=== PATIENT | female | born 1965 | race Caucasian/White ===

== ENCOUNTER 2016-05-14 02:39 | Emergency (ER) | payer OTHER ==
[~2016-05-14] VITALS: Ht 162.6 cm; Wt 54.5 kg
[~2016-05-14 02:39] MED LIST: LORA-303 PO; PROM25TA14 PO
[2016-05-14 03:00] VITALS: BP 124/100; PULSE 102; RESP 19; O2SAT 99
--- NOTE | 2016-05-14 03:00 | ED.REPORT ---
HPI-General Illness Date of Service May 14, 2016 ED Provider: Dr. Muller Pt is a 50 year old female presenting to the ED wanting to detox from EtOH. She reports vomiting green bile and shaking. Pt states that she has been drinking 1/ 2 a fifth to 1/5 daily for the past 2 weeks. Before that she was sober for 9 months. She denies hx of withdrawal seizures, liver disease, cirrhosis. Nursing Notes Stated Complaint: ALCOHOL WITHDRAWAL Chief Complaint: Substance Abuse Nursing Notes Reviewed: Yes Allergies: Coded Allergies: Sulfa (Sulfonamide Antibiotics) (Verified Allergy, Unknown, 05/14/16) amoxicillin (Verified Allergy, Unknown, 05/14/16) clavulanic acid (Verified Allergy, Unknown, 05/14/16) Scheduled Omeprazole (Omeprazole) 20 Mg Tablet.dr 20 MG PO BID Ondansetron ODT (Ondansetron ODT) 8 Mg Tab.rapdis 8 MG PO BID Scheduled PRN Lorazepam (Ativan) 1 Mg Tablet 1 MG PO ASDIRECTED PRN PRN For Anxiety 1 mg every 6 hours for 4 doses, then 1 mg every 8 hours for 3 doses, then 1 mg every 12 hours for 2 doses, then 1 mg on the final day. Promethazine (Promethazine) 25 Mg Tablet 25 MG PO Q6H PRN PRN For Nausea/ Vomiting General Time Seen by MD: 02:59 Chief Complaint Vomiting, Other (Alcohol Withdrawal) Hx Obtained From: Patient, Spouse Arrived By: Walk-in Sudden in Onset?: No Onset Occurred: Just prior to arrival Context of Onset: EtOH use Symptom Duration: Since onset Severity: Current: No pain currently Severity: Maximum: No pain Recent Healthcare: No recent doctor visit, No recent hospitalization Similar Sx Previous: Yes Past Medical History Past Medical History Alcoholism Past Surgical History None Smoking History Unknown if Ever Smoker Social History Alcohol Use: >5 per day Drug Use: Denies drug use Other Social History: Ambulatory Status Independent Review of Systems Full Review of Systems GI: Reports: Vomiting Neurologic: Reports: Shaking, Denies: Seizure Complete sys rev & neg: except as marked. Physical Exam Vital Signs Vital Signs Date Time Temp Pulse Resp B/P Pulse Ox O2 Delivery O2 Flow Rate FiO2 05/14/16 06:11 104 14 118/88 98 Room Air 05/14/16 03:00 35.8 102 19 124/100 99 Room Air Initial VS: Reviewed Head / Eyes: Atraumatic, Normocephalic, PERRL ENT: Mucous membranes moist, Conjunctiva normal, No scleral icterus Neck: Supple, Non-tender, Full range of motion Respiratory: Breath sounds normal, Clear to auscultation, No respiratory distress Skin: Warm, Dry, No cyanosis Neurologic: Alert, Oriented, Nonfocal Psychiatric: Mood/affect normal, Behavior normal, Normal thought content General/Constitutional: Awake, Alert Distress / Hydration: Positive: Dehydration mild Appearance / Presentation: Positive: Icteric Tremulous Cardiovascular: Regular rhythm, Heart sounds NL Heart Rate / Rhythm: Positive: Tachycardia Abdomen: Atraumatic, No guarding, No rebound Tenderness/Guarding/Rebound: Positive: Tender epigastric Interpretation & Diagnostics Lab Results Interpretation Result Diagram: 05/14/16 0300 05/14/16 0300 Test 05/14/16 03:00 05/14/16 03:30 White Blood Count 11.9th/mm3 (3.8-10.1) Red Blood Count 4.59mil/mm3 (3.90-5.20) Hemoglobin 13.7g/dL (12.0-15.6) Hematocrit 39.1% (35.0-46.0) Mean Corpuscular Volume 85.2fL (81-100) Mean Corpuscular Hemoglobin 29.8pg (27.0-35.0) Mean Corpuscular Hemoglobin Concent 35.0% (32.0-37.0) Red Cell Distribution Width 13.5% (12.3-15.4) Platelet Count 170bil/L (150-400) Neutrophils (%) (Auto) 85.8% (40-74) Lymphocytes (%) (Auto) 9.2% (14-46) Monocytes (%) (Auto) 4.5% (4-12) Eosinophils (%) (Auto) 0% (0-5) Basophils (%) (Auto) 0.2% (0-3) Prothrombin Time 10.5sec (8.1-12.5) Prothromb Time International Ratio 0.98ratio Sodium Level 140mEq/L (134-144) Potassium Level 4.0mEq/L (3.5-5.2) Chloride Level 94mEq/L (97-108) Carbon Dioxide Level 26mmol/L (18-29) Blood Urea Nitrogen 18mg/dL (6-24) Creatinine 0.41mg/dL (0.57-1.00) Estimat Glomerular Filtration Rate 234mL/min (>59) Glucose Level 155mg/dL (60-99) Calcium Level 8.4mg/dL (8.5-10.1) Magnesium Level 2.2mg/dL (1.6-2.6) Total Bilirubin 0.5mg/dL (0.0-1.2) Aspartate Amino Transf (AST/SGOT) 51U/L (0-50) Alanine Aminotransferase (ALT/SGPT) 29U/L (0-32) Alkaline Phosphatase 93U/L (25-150) Total Protein 7.4g/dL (6.4-8.4) Albumin 4.8g/dL (3.4-5.0) Lipase 39U/L (13-60) Hold Nugent Top Tube Received (Received) Urine Color Yellow (YELLOW) Urine Appearance Clear (CLEAR,HAZY) Urine pH 6.2 (5.0-8.0) Urine Specific [place] 1.020 (1.003-1.035) Urine Protein Tracemg/dL (NEG,TRACE) Urine Glucose (UA) Negativemg/dL (NEGATIVE) Urine Ketones Negativemg/dL (NEGATIVE) Urine Occult Blood Large (NEGATIVE) Urine Nitrite Negative (NEGATIVE) Urine Bilirubin Negative (NEGATIVE) Urine Urobilinogen Normalmg/dL (NORMAL) Urine Leukocyte Esterase Negative (NEGATIVE) Urine RBC 3-10/hpf (0-2) Urine WBC 0-5/hpf (0-5) Urine Epithelial Cells Occasional/hpf (NONE-MOD) Urine Crystals None seen (NONE SEEN) Urine Bacteria Few/hpf (NONE-FEW) Urine Hyaline Casts Occasional/lpf (NONE) Urine Granular Casts Occasional (NONE SEEN) Urine Waxy Casts None seen (NONE SEEN) Urine Red Blood Cell Casts None seen (NONE SEEN) Urine White Blood Cell Casts None seen (NONE SEEN) Urine Mucus Present (None Seen) Urine Trichomonas None seen (NONE SEEN) Urine Yeast None (NONE SEEN) Urinalysis Comment None Urine Culture Reflexed Not indicated ECG Interpretation Time: 05:51 Interpreted by: ED physician Normal ECG Interpretation: Normal sinus rhythm Rhythm / Conduction: Tachycardia (Rate 105) Re-Eval/Medical Decision Med Decision/Clinical Course 50-year-old with intermittent severe alcoholism presents after a fairly brief relapse of 2-3 weeks. However, she drinks upwards to a fifth of distilled liquor a day. She is tremulous, mildly tachycardic, and clearly in withdrawal. Much improved after 4 mg total of Ativan given orally. She lives in a stable environment at home with her who is quite supportive. He believes she can be withdrawn safely at home as has happened in the past. Provided with Ativan and Zofran for support. Prompt return of seizures or other issues develop. Discharged in stable and improved condition. Time of Eval: 04:31 Patient Status: Condition improved Re-Evaluation/Progress Note: Pt resting comfortably. Time of Eval: 05:57 Patient Status: Condition improved Re-Evaluation/Progress Note: Discussed plan for discharge. Pt understands and agrees with plan. Counseled Regarding: Diagnosis, Lab results, Need for follow-up, When/why to return to ED Discharge & Departure Primary Impression: Alcohol withdrawal Complication of substance-induced condition: uncomplicated Qualified Code: F10.230 - Alcohol dependence with withdrawal, uncomplicated Additional Impressions: Alcohol abuse Dehydration Disposition: Home Discharge Condition All VS Reviewed: Yes Condition: Improved Patient Instructions: Alcohol Withdrawal (ED) Additional Instructions: Began Ativan as directed on the label. Do not drink. Follow-up with your doctor in the office. Return if any immediate issues. Zofran four times daily if needed for nausea. Ondansetron twice daily. Referrals: Christy Benitez MD (PCP) Josue Attestation Portions of this note were transcribed by Veronica Fountain. I, Dr. Muller personally performed the history, physical exam and medical decision-making; I reviewed and confirmed the accuracy of the information in the transcribed note. Signed by: Josue Chang, 05/14/2016 at 0556. copies to: Christy Benitez MD, Christopher W MD May 14, 2016 03:00 VERONICA FOUNTAIN May 14, 2016 03:10
[2016-05-14] MEDS ORDERED: Multivitamin w/Vit K Inj 10 ML, Thiamine Inj 100 MG, Folic Acid Inj 1 MG, Magnesium Sul... IV ONE ×5 (03:07)
[2016-05-14] MEDS ORDERED: 0.9% Sodium Chloride 1,000 ML IV ONE (03:07)
[2016-05-14] MEDS ORDERED: Ondansetron 2 mg/mL 2 mL Inj IVPUSH ONE (03:10)
[2016-05-14] MEDS ORDERED: Pantoprazole 4 mg/mL 10 mL Inj IVPUSH ONE (03:10)
[2016-05-14 03:15] LABS: BASOPHILS % (AUTO) 0.2 % (0-3); EOSINOPHILS % (AUTO) 0 % (0-5); MONOCYTES % (AUTO) 4.5 % (4-12); Mean Corpuscular Hemoglobin 29.8 pg (27.0-35.0); Mean Corpuscular Volume 85.2 fL (81-100); NEUTROPHILS % (AUTO) 85.8 % (40-74); Platelet Count 170 bil/L (150-400)
[2016-05-14 03:27] LABS: INR 0.98 ratio
[2016-05-14 03:34] LABS: Magnesium 2.2 mg/dL (1.6-2.6)
[2016-05-14 03:43] LABS: APPEARANCE,URINE CLEAR (CLEAR,HAZY); COLOR,URINE YELLOW (YELLOW); PH,URINE 6.2 (5.0-8.0)
[2016-05-14 03:44] LABS: OCCULT BLOOD,URINE LARGE (NEGATIVE); UROBILINOGEN,URINE NORMAL (NORMAL)
[2016-05-14] MEDS ORDERED: LORazepam 2 mg Tablet PO ONE (04:40)
[2016-05-14] MEDS ORDERED: _Ondansetron ODT 4 mg Tablet PO PRN (05:25)
[2016-05-14] MEDS ORDERED: OMEP20TA86 PO (05:25)
[2016-05-14] MEDS ORDERED: _LORazepam 2 MG Tablet PO SCH (05:25)
[2016-05-14] MEDS ORDERED: ONDA8TAB10 PO (05:25)
[2016-05-14 06:11] VITALS: BP 118/88; PULSE 104; RESP 14; O2SAT 98
== END 2016-05-14 05:26 | disposition home or self-care (01) ==
LOC: SED 02:39
DX: F10.230 Alcohol dependence with withdrawal, uncomplicated (principal); E86.0 Dehydration; Z88.2 Allergy status to sulfonamides; Z88.0 Allergy status to penicillin
CPT/HCPCS: 36415; 80053; 81000; 83690; 83735; 85025; 85610; 93005; 96361; 96374; 96375; 96376; 99285; J2060; J2405; J3475; J7030

== ENCOUNTER 2016-10-02 13:28 | Observation (INO) | payer OTHER ==
[~2016-10-02] VITALS: Ht 162.6 cm; Wt 58.4 kg
[~2016-10-02 13:28] MED LIST changes: +OMEP20TA86 PO; +ONDA8TAB10 PO
[2016-10-02 13:55] VITALS: BP 147/87; PULSE 100; RESP 15; O2SAT 98
[2016-10-02] MEDS ORDERED: LidocaineVisc 2%:Antacid 1:1 10 mL Syringe PO STA (14:52)
[2016-10-02] MEDS ORDERED: Pantoprazole 4 mg/mL 10 mL Inj IVPUSH ONE (14:55)
[2016-10-02] MEDS ORDERED: Ondansetron 2 mg/mL 2 mL Inj IVPUSH ONE (14:55)
[2016-10-02] MEDS ORDERED: Thiamine Inj 100 MG, Folic Acid Inj 1 MG, Magnesium Sulfate 50% Inj 2 GM, Multivitamins... IV ONE ×5 (14:55)
--- NOTE | 2016-10-02 15:02 | ED.REPORT ---
HPI-General Illness Date of Service Oct 02, 2016 ED Provider: Cristian Morton MD A 50 year old female with a history of severe alcoholism, GERD and fibromyalgia presents to the ED complaining of persistent nausea secondary to alcohol withdrawal that began this afternoon. Patient began to express concern that she would drink more to relieve the nausea and presents to the ED seeking relief from her withdrawal symptoms and placement in a detox center. Her last drink was at 0500 this morning. Associated symptoms include decreased fluid intake. dry-heaving and tremors. Her symptoms have been constant since arrival to the ED. Patient was seen in the ED on 05/14 for similar withdrawal symptoms and was discharged in good condition with a prescription for Ativan, Zofran and Ondansetron. The patient has been drinking since 8th grade with multiple periods of sobriety. She denies history of withdrawal seizures. Patient denies any chest pain or SOB. Nursing Notes Stated Complaint: NAUSEA/WITHDRAWL Chief Complaint: Substance Abuse Nursing Notes Reviewed: Yes Allergies: Coded Allergies: Sulfa (Sulfonamide Antibiotics) (Verified Allergy, Unknown, 10/02/16) amoxicillin (Verified Allergy, Unknown, 10/02/16) clavulanic acid (Verified Allergy, Unknown, 10/02/16) Scheduled Pantoprazole DR (Protonix) 20 Mg Tablet 20 MG PO BID Pregabalin (Lyrica) 75 Mg Capsule 75 MG PO BID Scheduled PRN Ibuprofen (Ibuprofen) 200 Mg Capsule 200-400 MG PO TID PRN PRN For Pain General Time Seen by MD: 14:49 Chief Complaint Other (Nausea) Hx Obtained From: Patient Arrived By: Walk-in Sudden in Onset?: No Onset Occurred: 9 - 12 hours ago Symptom Duration: Since onset Associated with: Reports: Nausea Pertinent Negative: Pt denies other symptoms Recent Healthcare: No recent hospitalization, Recent doctor visit Past Medical History Past Medical History Alcoholism Fibromyalgia GERD Past Surgical History None reported Smoking History Unknown if Ever Smoker Social History Alcohol Use: >5 per day Drug Use: Denies drug use Other Social History: Good social support, , Local resident Ambulatory Status Independent Review of Systems Decreased fluid intake Full Review of Systems GI: Reports: Nausea Complete sys rev & neg: except as marked. Physical Exam Nursing note and vitals reviewed. Constitutional: Well-developed, well-nourished. Not diaphoretic. Head: Normocephalic and atraumatic. Mouth/Throat: Oropharynx is clear and moist. Eyes: EOM are normal. Pupils are equal, round, and reactive to light. Neck: Supple, no tracheal deviation. Cardiovascular: Tachycardic, regular rhythm. Equal and intact distal pulses throughout. Pulmonary/Chest: Effort normal and breath sounds normal. No respiratory distress. Abdominal: Soft. No distension. There is no tenderness, rebound, or guarding. Bowel sounds present. Musculoskeletal: Range of motion grossly intact, moving all extremities. No edema or tenderness appreciated. Neurological: Tremulous. No asterixis. AOx3. Strength and sensation intact and equal to bilateral upper and lower extremities. Skin: Warm and dry, no rashes or pallor appreciated. Psychiatric: Appropriate mood and affect. Behavior appears normal. Vital Signs Vital Signs Date Time Temp Pulse Resp B/P Pulse Ox O2 Delivery O2 Flow Rate FiO2 10/02/16 13:55 36.8 100 15 147/87 98 Room Air Interpretation & Diagnostics Lab Results Interpretation Result Diagram: 10/02/16 1500 10/02/16 1500 Test 10/02/16 15:00 White Blood Count 11.5th/mm3 (3.8-10.1) Red Blood Count 5.24mil/mm3 (3.90-5.20) Hemoglobin 16.1g/dL (12.0-15.6) Hematocrit 46.4% (35.0-46.0) Mean Corpuscular Volume 88.5fL (81-100) Mean Corpuscular Hemoglobin 30.7pg (27.0-35.0) Mean Corpuscular Hemoglobin Concent 34.7% (32.0-37.0) Red Cell Distribution Width 14.4% (12.3-15.4) Platelet Count 316bil/L (150-400) Neutrophils (%) (Auto) 59.3% (40-74) Lymphocytes (%) (Auto) 28.3% (14-46) Monocytes (%) (Auto) 11.4% (4-12) Eosinophils (%) (Auto) 0.4% (0-5) Basophils (%) (Auto) 0.4% (0-3) Sodium Level 138mEq/L (134-144) Potassium Level 4.2mEq/L (3.5-5.2) Chloride Level 96mEq/L (97-108) Carbon Dioxide Level 19mmol/L (18-29) Blood Urea Nitrogen 16mg/dL (6-24) Creatinine 0.66mg/dL (0.57-1.00) Estimat Glomerular Filtration Rate 135mL/min (>59) Glucose Level 91mg/dL (60-99) Calcium Level 9.1mg/dL (8.5-10.1) Total Bilirubin 0.6mg/dL (0.0-1.2) Aspartate Amino Transf (AST/SGOT) 33U/L (0-50) Alanine Aminotransferase (ALT/SGPT) 23U/L (0-32) Alkaline Phosphatase 85U/L (25-150) Total Protein 8.1g/dL (6.4-8.4) Albumin 5.0g/dL (3.4-5.0) Lipase 24U/L (13-60) Hold Nugent Top Tube Received (Received) Alcohols 75mg/dL (0-10) ECG Interpretation ECG Interpretation: Sinus Rhythm Rate 93 Probable left atrial enlargement No prior for comparison Time: 16:23 Interpreted by: ED physician Re-Eval/Medical Decision Med Decision/Clinical Course In summary, 51-year-old female presenting to the ED for evaluation of tremor, tachycardia and concern for alcohol withdrawal. Last drink early this morning. CIWA score upon arrival of 20. Laboratory studies reviewed, notable for a white blood cell count of 11.5, anion gap of 23, blood alcohol 75. Lipase within normal limits. EKG demonstrates sinus rhythm, no acute ischemic changes. Patient given folic acid, thiamine, multivitamin, and IV fluids here in the ED, as well as benzodiazepines. No history of seizures with her alcohol withdrawal. Plan admission for further evaluation and management of acute alcohol withdrawal. Time of Eval: 16:09 Re-Evaluation/Progress Note: Patient's symptoms are still present following .5 L of saline. She is offerred admission to the hospital for withdrawal symptoms. Time of Eval: 16:38 Patient Status: Condition improved Re-Evaluation/Progress Note: Symptoms have improved. She would like to be admitted to the hosptial for further evaluation and symptom control. All questions are addressed. Consultation : Consulted With: Hospitalist Call Returned at: 16:39 Ticket Speculator: Will see patient, Agrees with eval, Agrees with plan, Accepts admit Counseled Regarding: Diagnosis, Lab results, Need for admission Discharge & Departure Primary Impression: Alcohol withdrawal Complication of substance-induced condition: uncomplicated Qualified Code: F10.230 - Alcohol dependence with withdrawal, uncomplicated Disposition: ADMITTED TO HOSPITAL Discharge Condition All VS Reviewed: Yes Condition: Stable Referrals: Christy Benitez MD (PCP) Josue Attestation Portions of this note were transcribed by Reyna Cano. Dr. Selene Diaz personally performed the history, physical exam and medical decision-making; I reviewed and confirmed the accuracy of the information in the transcribed note. Signed by: Josue Enamorado, 10/02/16 1640. copies to: Christy Benitez MD, William B MD Oct 02, 2016 15:02 JEROMEREYNA Oct 02, 2016 15:36 Portions of this note were transcribed by Reyna Cano. Dr. Selene Diaz personally performed the history, physical exam and medical decision-making; I reviewed and confirmed the accuracy of the information in the transcribed note. Signed by: Josue Enamorado, 10/02/16 1640. copies to: Christy Benitez MD, William B MD Oct 02, 2016 15:02 REYNA CANO Oct 02, 2016 15:36
[2016-10-02 15:18] LABS: BASOPHILS % (AUTO) 0.4 % (0-3); EOSINOPHILS % (AUTO) 0.4 % (0-5); MONOCYTES % (AUTO) 11.4 % (4-12); Mean Corpuscular Hemoglobin 30.7 pg (27.0-35.0); Mean Corpuscular Volume 88.5 fL (81-100); NEUTROPHILS % (AUTO) 59.3 % (40-74); Platelet Count 316 bil/L (150-400)
[2016-10-02] MEDS ORDERED: Ondansetron 2 mg/mL 2 mL Inj IVPUSH PRN ×2 (15:50→16:20)
[2016-10-02] MEDS ORDERED: 0.9% Sodium Chloride 1,000 ML IV ONE (16:00)
[2016-10-02] MEDS ORDERED: Polyethylene Glycol (PEG) 17 Gm Powder PO PRN (16:20)
[2016-10-02] MEDS ORDERED: Alum-Mag Hydrox-Simeth 30 mL Suspension PO PRN (16:20)
[2016-10-02] MEDS ORDERED: PANT20T PO (16:33)
[2016-10-02] MEDS ORDERED: PREG75CA PO (16:33)
[2016-10-02] MEDS ORDERED: IBUP200C PO (16:33)
[2016-10-02 17:45] VITALS: BP 141/86; PULSE 88; RESP 22; O2SAT 96
[2016-10-02 17:56] VITALS: PULSE 89
[2016-10-02] MEDS: chlordiazePOXIDE 25 mg Capsule PO PRN (18:01)
[2016-10-02] MEDS: Heparin 5,000 Unit/mL Inj SUBQ SCH (18:02)
[2016-10-02] MEDS: Pantoprazole 40 mg ER24 Tablet PO SCH (18:20)
--- NOTE | 2016-10-02 18:32 | PCM.HPMED ---
Subjective Date of Service Oct 02, 2016 Primary Provider: Admitting Physician: Flex Zavala MD Primary Care Physician: Christy Benitez MD Attending Physician: Flex Zavala MD Admit Status: From the Emergency Department Chief Complaint: Nausea, Withdrawal History of Present Illness: Radha Restrepo is a 51 year old female with a history of GERD and severe alcohol dependence that presented to the Emergency Department on 10/02 for ongoing nausea secondary to alcohol withdrawal that began earlier this morning. She is unable to keep anything down by mouth and has been retching with tremors all afternoon. Her last drink was at 0500 this morning. She is hoping to detox and get more resources so that she doesn't relapse again as she is part of AA and feels like that is not enough. She denies any chest pain, shortness of breath, hallucinations, prior withdrawal seizures or inpatient detox attempts. Review of Systems: A comprehensive review of systems was obtained and reported negative except as in the History of Present Illness. Allergies Coded Allergies: Sulfa (Sulfonamide Antibiotics) (Verified Allergy, Unknown, 10/02/16) amoxicillin (Verified Allergy, Unknown, 10/02/16) clavulanic acid (Verified Allergy, Unknown, 10/02/16) Home Medications Scheduled Pantoprazole DR (Protonix) 20 Mg Tablet 20 MG PO BID Pregabalin (Lyrica) 75 Mg Capsule 75 MG PO BID PMH Alcoholism Fibromyalgia GERD Surgical History C-spine vertebral replacement, 2 discs Family History Father: of Pancreatic Cancer Mother: of heart failure Social History Hx Alcohol Use: Yes (DAILY) Hx Substance Use: No Hx Tobacco Use: Yes (1/2 ppd for 40 years) Smoking Status: Current Every Day Smoker, Unknown if Ever Smoker Living Arrangement: with Family Exam Vital Signs Vital Sign - Last Date Time Temp Pulse Resp B/P Pulse Ox O2 Delivery O2 Flow Rate FiO2 10/02/16 17:56 89 10/02/16 17:45 36.6 22 141/86 96 Room Air Exam Gen: Age appropriate female sitting comfortably in NAD, interacting appropriately HEENT: NCAT. PERRLA, EOMI. Membranes pink and moist. Neck: Supple, no JVD or thyromegaly. CV: Tachycardic, regular rhythm. No murmur/rub/gallop Pulm: CTA bilaterally, no wheezing/rales/rhonchi. Normal inspiratory effort without accessory muscle use. Abd: Soft, nontender, nondistended. No rebound or guarding. Bowel sounds present. Extremities: No cyanosis, clubbing, edema. Slightly tremulous. Neuro: A&Ox3. CN 2-12 grossly intact. Muscle strength normal in all extremities. No focal deficits. Psych: Anxious Lab and Diagnostics Result Diagram: 10/02/16 1500 10/02/16 1500 12-lead ECG Sinus Rhythm Rate 93 Probable left atrial enlargement Assessment & Plan Radha Restrepo is a 51 year old female with a history of GERD and severe alcohol dependence that presented to the Emergency Department on 10/02 for ongoing nausea secondary to alcohol withdrawal that began earlier this morning. She is unable to keep anything down by mouth and has been retching with tremors all afternoon. Her last drink was at 0500 on 10/02. She is hoping to detox and get more resources so that she doesn't relapse again as she is part of AA and feels like that is not enough. Alcohol Dependence with withdrawal, present on admission, chronic. Active. - Patient has long history with alcohol, frequent binges ~40 years - CIWA protocol initiated (CIWA scores in ED were 20, 15) - Librium 50mg q6h as patient can take PO - Thiamine, Multivitamin, Banana bag daily - [employer] for resource availability Fibromyalgia, present on admission, chronic. Stable. - Continue home Lyrica 75mg PO BID GERD - Continue home Protonix 40mg daily PRN Medications - Acetaminophen as needed for mild pain/fever/headache - Bowel regimen as needed - Antiemetic as needed Patient Status: The patient was admitted for observation due to presenting symptoms, medical complexity, and continued medical stability. GI Prophylaxis: Proton Pump Inhibitor VTE Prophylaxis: Sub-Q Heparin (Unfractionated) VTE Mechanical Devices: Intermittant Pneumatic CD Resuscitation Status: CPR: Attempt Resuscitation copies to: Christy Benitez MD, Jeffery S DO Oct 02, 2016 18:32 Flex Zavaal MD Oct 03, 2016 16:37
--- NOTE | 2016-10-02 18:42 | NUR ---
Admit/CIWA/ abdominal pain On arrived to her room this evening. CIWA score was 12. Patient stated having abdominal pain3-5/10 but declined pain medications. Patient stated felling anxious and unease. Patient stated if I could eat something it would help my tome ache. Consulted with MD- PO dose of 40mg protonix as well as PRN dose of Librium 50mg PO were given this evening. Patient remained on telemetry monitoring. Patient was oriented to call light ,her room , activity and diet- she verbalized understanding and was able to use call light appropriately- frequent monitoring, continue assessment.
[2016-10-03 00:11] VITALS: BP 124/77; PULSE 75; RESP 14; O2SAT 96
[2016-10-03] MEDS: chlordiazePOXIDE 25 mg Capsule PO PRN ×2 (00:18→11:47)
[2016-10-03] MEDS: Heparin 5,000 Unit/mL Inj SUBQ SCH ×2 (00:18→09:35)
[2016-10-03 04:16] VITALS: BP 129/84; PULSE 58; RESP 16; O2SAT 97
[2016-10-03 05:41] VITALS: PULSE 73
--- NOTE | 2016-10-03 05:52 | NUR ---
CIWA/Pain/Tele CIWA 30 and then 10 , gave 50 Mg Librium to allow sleep, slightly restless, interested in becoming sober, has mentioned clean/sober past, . On room air, A&O x3 using call light appropriately.denies pain , denies SOB Tele [id number]
[2016-10-03 07:25] LABS: BASOPHILS % (AUTO) 1.1 % (0-3); EOSINOPHILS % (AUTO) 2.9 % (0-5); MONOCYTES % (AUTO) 14.4 % (4-12); Mean Corpuscular Hemoglobin 30.9 pg (27.0-35.0); Mean Corpuscular Volume 91.3 fL (81-100); NEUTROPHILS % (AUTO) 46.5 % (40-74); Platelet Count 189 bil/L (150-400)
[2016-10-03] MEDS ORDERED: Pantoprazole 40 mg ER24 Tablet PO SCH (07:30)
[2016-10-03] MEDS ORDERED: Multivit-Miner-Folic Acid-Iron Tablet PO SCH (08:30)
[2016-10-03 08:59] VITALS: PULSE 67
[2016-10-03 09:00] VITALS: BP 113/74; PULSE 77; RESP 18; O2SAT 98
[2016-10-03] MEDS: Pantoprazole 40 mg ER24 Tablet PO SCH (09:32)
[2016-10-03] MEDS ORDERED: CHLO25CA10 PO (11:30)
[2016-10-03] MEDS ORDERED: DISU250T5 PO (11:34)
--- NOTE | 2016-10-03 11:34 | PCM.DIMED ---
Sly Jeff DO 10/03/16 1134: Discharge Instructions Date of Service Oct 03, 2016 Dates of Hospitalization Oct 02, 2016 at 16:57 Discharge Diagnosis Discharge Diagnosis Alcohol Dependence Fibromyalgia GERD Activity Discharge Activity: No restrictions Call your provider Call your provider for: Vomitting, Excessive diarrhea, Other (Nausea) Patient Instructions Patient Instructions Take 25-50mg of Librium every 6 hours as needed for your withdrawal symptoms. Take your Protonix 20mg twice daily for 4 weeks and then drop to 20mg once daily to help protect your stomach. Avoid aspirin or ibuprofen if possible. Please see Dr. Eli CUMMINGS to ensure further management of withdrawal and resources in your area to prevent relapse. I have also prescribed some Disulfiram; keep it on your bedside table and take it every morning to help assist in your detoxification efforts. Follow-up Provider: Christy Benitez MD Follow-up with PCP in: 1 week (1-2 weeks for resources, ongoing detox) Flex Zavala MD 10/03/16 1637: Discharge Instructions Attending's Statement The patient was seen and examined together with Dr. Jeff on 10/03/2016 and I agree with the history, exam and plan as outlined in the note above. . Sly Jeff DO Oct 03, 2016 11:34 Flex Zavala MD Oct 03, 2016 16:37
--- NOTE | 2016-10-03 12:25 | NUR ---
Discharge Pt received one dose Librium for c/o shakiness, anaiety, and headache. Pt received maalox for c/o upset stomach. But understands new medications and received prescriptions. IV removed. Tele removed. Pt escorted down to vehicle with staff member.
--- NOTE | 2016-10-03 14:55 | PCM.DC.MED ---
Discharge Summary Date of Service Oct 03, 2016 Dates of Hospitalization Date of Hospital Admission Oct 02, 2016 at 16:57 Date of Discharge: Oct 03, 2016 Providers: Admitting Physician: Flex Zavala MD Primary Care Physician: Christy Benitez MD Attending Physician: Flex Zavala MD Diagnosis at Time of Discharge Diagnosis at Time of Discharge Alcohol Dependence Fibromyalgia GERD Procedures ECG 12 Lead Sinus Rhythm Rate 93 Probable left atrial enlargement Brief History Radha Restrepo is a 51 year old female with a history of GERD and severe alcohol dependence that presented to the Emergency Department on 10/02 for ongoing nausea secondary to alcohol withdrawal that began earlier that morning. She was unable to keep anything down by mouth and has been retching with tremors all afternoon. Her last drink was at 0500 yesterday morning. She was hoping to detox and get more resources so that she doesn't relapse again as she is part of AA and feels like that is not enough. She denied any chest pain, shortness of breath, hallucinations, prior withdrawal seizures or inpatient detox attempts. Radha was admitted for observation under the CIWA protocol. As her CIWA scores were low and she was able to hold down PO intake, we opted for Librium 25-50mg q6h for her withdrawal symptoms. After being comfortable overnight, she felt safe for discharge and will follow up with her PCP, Dr. Benitez, for other detoxification options. She was discharged with a prescription for Librium as well as Disulfiram but stated she would not take the Disulfiram because it made her flushed and nauseated, which is what is is supposed to do when you drink while on the medication. She said she would try it again but would ask Dr. Benitez for other options if it wasn't working. Hospital Course Radha Restrepo is a 51 year old female with a history of GERD and severe alcohol dependence that presented to the Emergency Department on 10/02 for ongoing nausea secondary to alcohol withdrawal that began earlier that morning. She was unable to keep anything down by mouth and has been retching with tremors all afternoon. Her last drink was at 0500 on 10/02. She is hoping to detox and get more resources so that she doesn't relapse again as she is part of AA and feels like that is not enough. Alcohol Dependence, present on admission, chronic. Stable. - Continue Librium 25-50mg q6h - Start Disulfiram 250mg PO daily - Follow up with Dr. Benitez's office for other medication options and resources to help cessation Fibromyalgia, present on admission, chronic. Stable. - Continue home Lyrica 75mg PO BID GERD, present on admission. Chronic. Stable. - Continue home Protonix 20mg PO BID Patient Status: The patient was discharged in stable and improved condition. She understood the outpatient treatment plan, risks of adverse events, and under what conditions she was to return to the hospital and seek further medical intervention. Exam Vital Signs (Last) Date Time Temp Pulse Resp B/P Pulse Ox O2 Delivery O2 Flow Rate FiO2 10/03/16 09:00 37.2 77 18 113/74 98 Room Air Exam Gen: Age appropriate female sleeping comfortably in NAD; interacts appropriately HEENT: NCAT. PERRLA, EOMI. Membranes pink and moist. Neck: Supple, no JVD or thyromegaly. CV: Tachycardic, regular rhythm. No murmur/rub/gallop Pulm: CTA bilaterally, no wheezing/rales/rhonchi. Normal inspiratory effort without accessory muscle use. Abd: Soft, nontender, nondistended. No rebound or guarding. Bowel sounds present. Extremities: No cyanosis, clubbing, edema. No tremor at this time. Neuro: A&Ox3. CN 2-12 grossly intact. Muscle strength normal in all extremities. No focal deficits. Psych: Normal mood and affect Test 10/02/16 15:00 10/03/16 07:19 Lipase 24U/L (13-60) Hold Nugent Top Tube Received (Received) Alcohols 75mg/dL (0-10) White Blood Count 6.1th/mm3 (3.8-10.1) Red Blood Count 4.50mil/mm3 (3.90-5.20) Hemoglobin 13.9g/dL (12.0-15.6) Hematocrit 41.1% (35.0-46.0) Mean Corpuscular Volume 91.3fL (81-100) Mean Corpuscular Hemoglobin 30.9pg (27.0-35.0) Mean Corpuscular Hemoglobin Concent 33.8% (32.0-37.0) Red Cell Distribution Width 13.8% (12.3-15.4) Platelet Count 189bil/L (150-400) Neutrophils (%) (Auto) 46.5% (40-74) Lymphocytes (%) (Auto) 34.9% (14-46) Monocytes (%) (Auto) 14.4% (4-12) Eosinophils (%) (Auto) 2.9% (0-5) Basophils (%) (Auto) 1.1% (0-3) Sodium Level 139mEq/L (134-144) Potassium Level 4.4mEq/L (3.5-5.2) Chloride Level 100mEq/L (97-108) Carbon Dioxide Level 26mmol/L (18-29) Blood Urea Nitrogen 17mg/dL (6-24) Creatinine 0.57mg/dL (0.57-1.00) Estimat Glomerular Filtration Rate 160mL/min (>59) Glucose Level 110mg/dL (60-99) Calcium Level 8.9mg/dL (8.5-10.1) Total Bilirubin 1.2mg/dL (0.0-1.2) Aspartate Amino Transf (AST/SGOT) 26U/L (0-50) Alanine Aminotransferase (ALT/SGPT) 18U/L (0-32) Alkaline Phosphatase 82U/L (25-150) Total Protein 6.5g/dL (6.4-8.4) Albumin 4.2g/dL (3.4-5.0) Discharge Medications Discharge Medications Disulfiram (Disulfiram) 250 Mg Tablet 250 MG PO DAILY Prescribed by: ROBINA JEFF DO Pantoprazole DR (Protonix) 20 Mg Tablet 20 MG PO BID (Reported) Pregabalin (Lyrica) 75 Mg Capsule 75 MG PO BID (Reported) As needed Chlordiazepoxide (Chlordiazepoxide) 25 Mg Capsule 25-50 MG PO Q6H PRN PRN Withdrawal Symptoms Prescribed by: ROBINA JEFF DO Followup Plan Discharge Activity: No restrictions Patient Instructions Take 25-50mg of Librium every 6 hours as needed for your withdrawal symptoms. Take your Protonix 20mg twice daily for 4 weeks and then drop to 20mg once daily to help protect your stomach. Avoid aspirin or ibuprofen if possible. Please see Dr. Eli CUMMINGS to ensure further management of withdrawal and resources in your area to prevent relapse. I have also prescribed some Disulfiram; keep it on your bedside table and take it every morning to help assist in your detoxification efforts. Follow-up Provider: Christy Benitez MD Follow-up with PCP in: 1 week (1-2 weeks for resources, ongoing detox) Time spent Greater than 30 minutes was spent in preparation of discharge with greater than 50% of that time dedicated to patient counseling and coordination of care. . Attending Statement The patient was seen and examined together with Dr. Jeff on 10/03/2016 and I agree with the history, exam and plan as outlined in the note above. . copies to: Christy Benitez MD, Jeffery S DO Oct 03, 2016 14:55 Flex Zavala MD Oct 03, 2016 16:39
--- NOTE | 2016-10-03 15:10 | NUR ---
Social Work- Attempted Assessment/Discharge Pt was discharged before [employer] was able to see pt due to high census. Pt left rapidly due to a in her family. LOVELY Sloan
== END 2016-10-03 12:30 | disposition home or self-care (01) ==
LOC: SED 13:28 → PCC 16:57 → INTOOBSV 16:57 → PCC 17:33
PROVIDERS: ADMIT Internal Medicine; ATTEND Internal Medicine
DX: F10.239 Alcohol dependence with withdrawal, unspecified (principal); R11.0 Nausea; K21.9 Gastro-esophageal reflux disease without esophagitis; M79.7 Fibromyalgia; F17.210 Nicotine dependence, cigarettes, uncomplicated; Z88.2 Allergy status to sulfonamides; Z88.1 Allergy status to other antibiotic agents; Z88.8 Allergy status to other drugs, medicaments and biological substances; Z79.899 Other long term (current) drug therapy
CPT/HCPCS: 36415; 80053; 83690; 85025; 93005; 96361; 96365; 96375; 96376; 99285; G0378; G0480; J1644; J2405; J3360; J3475; J7030